=== PATIENT | female | born 1980 | race Caucasian/White ===

== ENCOUNTER 2022-01-26 12:50 | Emergency (ER) | payer OTHER ==
[~2022-01-26] VITALS: Ht 162.6 cm; Wt 68.0 kg
[2022-01-26 13:16] VITALS: BP 118/80
[2022-01-26] MEDS ORDERED: ACETAMINOPHEN 325MG TABLET PO ONE (13:30)
== END 2022-01-26 15:19 | disposition left against medical advice (07) ==
LOC: ER 12:50
DX: R51.9 Headache, unspecified (principal); R07.89 Other chest pain; M79.642 Pain in left hand; V43.52XA Car driver injured in collision with other type car in traffic accident, initial encounter; Y93.89 Activity, other specified; Y92.488 Other paved roadways as the place of occurrence of the external cause
CPT/HCPCS: 29125; 71045; 73110; 73130; 81025; 93005; 99285